=== PATIENT | female | born 1955 | race African-American/Black ===

== ENCOUNTER 2021-01-01 15:15 | Inpatient (IN) | payer MEDICAID, OTHER ==
[~2021-01-01] VITALS: Ht 160 cm; Wt 77.1 kg
[2021-01-01] MEDS ORDERED: ONDANSETRON HCL 4MG/2ML INJ IV STA (15:32)
[2021-01-01] MEDS ORDERED: LORAZEPAM 2MG/ML CPJ IV ONE (15:45)
[2021-01-01] MEDS ORDERED: HALOPERIDOL LACTATE 5MG/ML VIAL IM ONE (15:45)
[2021-01-01] MEDS ORDERED: LEVETIRACETAM 500MG PREMIX 100 ML IV ONE (15:45)
[2021-01-01] MEDS ORDERED: DIPHENHYDRAMINE 50MG/ML VIAL IM ONE (15:45)
[2021-01-01] MEDS ORDERED: SODIUM CHLORIDE 0.9% 1,000 ML IV ONE (15:45)
[2021-01-01 18:08] LABS: HEMATOCRIT. 39.6 % (36.0-48.0); HEMOGLOBIN. 13.2 g/dL (12.0-16.0); MEAN CORPUSCULAR VOLUME 95.9 fL (81.0-99.0); MEAN PLATELET VOLUME 8.4 fl (7.4-10.4); PLATELET 222 x1000/uL (130-400); RED BLOOD CELL COUNT 4.13 mill/uL (4.2-5.4); RED CELL DISTRIBUTION WIDTH 13.5 % (11.6-14.6)
[2021-01-01 18:12] LABS: CLARITY URINE CLEAR (CLEAR); COLOR URINE YELLOW (YELLOW); KETONES URINE 1+ (NEGATIVE); LEUKOCYTE ESTERASE URINE NEGATIVE (NEGATIVE); NITRITE URINE NEGATIVE (NEGATIVE); OCCULT BLOOD URINE TRACE (NEGATIVE); PROTEIN URINE 1+ (NEGATIVE); SPECIFIC GRAVITY URINE 1.016 (1.005-1.030); UROBILINOGEN URINE 0.2 E.U./dL (0.2-1.0)
[2021-01-01 18:15] LABS: CHLORIDE 112 mEq/L (98-107)
[2021-01-01 18:19] LABS: ETHANOL BLOOD < 10 mg/dL
[2021-01-01 18:21] LABS: *AMPHETAMINES SCREEN URINE NEGATIVE (NEGATIVE); *BARBITURATES SCREEN URINE NEGATIVE (NEGATIVE); *BENZODIAZEPINES SCREEN URINE NEGATIVE (NEGATIVE); *COCAINE SCREEN URINE NEGATIVE (NEGATIVE); CANNABINOID URINE SCREEN PRESUMTIVE POSITIVE (NEGATIVE); PHENCYCLIDINE URINE SCREEN NEGATIVE (NEGATIVE)
[2021-01-01 18:22] LABS: METHADONE URINE SCREEN NEGATIVE (NEGATIVE); OPIATES URINE SCREEN NEGATIVE (NEGATIVE)
[2021-01-01 18:34] LABS: PROTHROMBIN TIME 10.5 sec (9.6-11.0)
[2021-01-01 18:53] LABS: PLATELET ESTIMATE NORMAL
[2021-01-02] VITALS: BP 131/82
[2021-01-02] MEDS ORDERED: LORAZEPAM 2MG/ML CPJ IV PRN (01:00)
[2021-01-02 04:00] VITALS: BP 108/54
[2021-01-02 08:20] VITALS: BP 127/76
[2021-01-02] MEDS: LEVETIRACETAM 500MG TABLET PO SCH ×2 (09:26→20:30)
[2021-01-02] MEDS: AMLODIPINE 10MG TABLET PO SCH (09:27)
[2021-01-02 12:00] VITALS: BP 121/74
[2021-01-02] MEDS ORDERED: INFLUENZA VACCINE 05/PF 0.5 ML VIAL IM ONE (12:00)
[2021-01-02 16:00] VITALS: BP 103/51
[2021-01-02 20:00] VITALS: BP 112/69
[2021-01-03] VITALS: BP 118/68
[2021-01-03 04:00] VITALS: BP 105/60
[2021-01-03 08:20] VITALS: BP 123/71
[2021-01-03] MEDS: LEVETIRACETAM 500MG TABLET PO SCH (10:30)
[2021-01-03] MEDS: AMLODIPINE 10MG TABLET PO SCH (10:31)
[2021-01-03 12:00] VITALS: BP 119/81
[2021-01-03] MEDS ORDERED: KEPP500 PO (13:34)
[2021-01-03 16:00] VITALS: BP 125/80
[2021-01-03 18:33] VITALS: BP 125/80
== END 2021-01-03 19:15 | disposition home or self-care (01) | DRG 53 ==
LOC: EDSEX 15:15 → ER 15:15 → MICUSO 18:55 → 8WST 23:01
PROVIDERS: ADMIT Internal Medicine; ATTEND Internal Medicine
DX: G40.901 Epilepsy, unspecified, not intractable, with status epilepticus (principal); I10 Essential (primary) hypertension; M62.82 Rhabdomyolysis; F32.9 Major depressive disorder, single episode, unspecified; T42.6X6A Underdosing of other antiepileptic and sedative-hypnotic drugs, initial encounter; R79.89 Other specified abnormal findings of blood chemistry; Y92.89 Other specified places as the place of occurrence of the external cause; Z88.0 Allergy status to penicillin
CPT/HCPCS: 36415; 71045; 80053; 80305; 80320; 81003; 82542; 82550; 82553; 82962; 84484; 85025; 90686; 93005; 93306; 99285; J1200; J1630; J1953; J2060; J2405; J7030; G0480

== ENCOUNTER 2021-02-19 13:14 | Emergency (ER) | payer MEDICARE, MEDICAID ==
[~2021-02-19] VITALS: Ht 162.6 cm; Wt 77.0 kg
[~2021-02-19 13:14] MED LIST: KEPP500 PO
[2021-02-19 17:21] LABS: BASOPHILS % 0.9 % (0.0-2.0); EOSINOPHILS % 0.4 % (0.0-5.0); HEMATOCRIT. 37.7 % (36.0-48.0); HEMOGLOBIN. 12.6 g/dL (12.0-16.0); LYMPHOCYTES % 21.8 % (20.0-50.0); MEAN CORPUSCULAR VOLUME 95.8 fL (81.0-99.0); MONOCYTES % 6.5 % (2.0-8.0); NEUTROPHILS % 70.4 % (40.0-76.0); PLATELET 288 x1000/uL (130-400); RED BLOOD CELL COUNT 3.94 mill/uL (4.2-5.4); RED CELL DISTRIBUTION WIDTH 14.2 % (11.6-14.6)
[2021-02-19 17:26] LABS: CHLORIDE 112 mEq/L (98-107)
[2021-02-19] MEDS ORDERED: CEFTRIAXONE 1 G PREMIX 50 ML IV ONE (17:45)
[2021-02-19 18:00] LABS: CLARITY URINE CLEAR (CLEAR); COLOR URINE YELLOW (YELLOW); KETONES URINE NEGATIVE (NEGATIVE); LEUKOCYTE ESTERASE URINE NEGATIVE (NEGATIVE); NITRITE URINE NEGATIVE (NEGATIVE); OCCULT BLOOD URINE NEGATIVE (NEGATIVE); PH URINE >=9.0 (4.5-8.0); PROTEIN URINE NEGATIVE (NEGATIVE); SPECIFIC GRAVITY URINE 1.017 (1.005-1.030); UROBILINOGEN URINE 0.2 E.U./dL (0.2-1.0)
[2021-02-19] MEDS ORDERED: LIDOCAINE HCL/PF 1% 10 MG/ML 5ML VIAL IJ ONE (20:45)
[2021-02-19] MEDS ORDERED: DOXY100C2 MT (22:36)
[2021-02-19 23:47] VITALS: BP 120/65
== END 2021-02-19 23:51 | disposition home or self-care (01) ==
LOC: ER 13:14
DX: G89.18 Other acute postprocedural pain (principal); R10.2 Pelvic and perineal pain; I10 Essential (primary) hypertension; G40.909 Epilepsy, unspecified, not intractable, without status epilepticus; F41.9 Anxiety disorder, unspecified; Z88.0 Allergy status to penicillin
CPT/HCPCS: 36415; 76857; 80053; 81003; 83690; 85025; 96365; 99284; J0696; J3490

== ENCOUNTER 2021-08-02 15:37 | Emergency (ER) | payer MEDICARE, MEDICAID ==
[~2021-08-02 15:37] MED LIST changes: +DOXY100C5 MT
== END 2021-08-02 16:05 | disposition left against medical advice (07) ==
LOC: ER 15:37
DX: Z53.21 Procedure and treatment not carried out due to patient leaving prior to being seen by health care provider (principal)

== ENCOUNTER 2022-02-15 20:28 | Emergency (ER) | payer OTHER, MEDICARE, MEDICAID ==
[~2022-02-15] VITALS: Ht 167.6 cm; Wt 73.0 kg
[2022-02-15] MEDS ORDERED: DIPHENHYDRAMINE 50MG/ML VIAL IM STA (21:14)
[2022-02-15] MEDS ORDERED: LORAZEPAM 2MG/ML CPJ IM STA (21:14)
[2022-02-15] MEDS ORDERED: HALOPERIDOL LACTATE 5MG/ML VIAL IM STA (21:14)
[2022-02-15 22:52] LABS: BASOPHILS % 0.2 % (0.0-2.0); EOSINOPHILS % 0.1 % (0.0-5.0); HEMATOCRIT. 37.7 % (36.0-48.0); HEMOGLOBIN. 12.5 g/dL (12.0-16.0); LYMPHOCYTES % 15.3 % (20.0-50.0); MEAN CORPUSCULAR HEMOGLOBIN 30.4 pg (28.0-32.0); MEAN CORPUSCULAR VOLUME 91.2 fL (81.0-99.0); MEAN PLATELET VOLUME 7.8 fl (7.4-10.4); MONOCYTES % 4.7 % (2.0-8.0); NEUTROPHILS % 79.7 % (40.0-76.0); PLATELET 194 x1000/uL (130-400); RED BLOOD CELL COUNT 4.13 mill/uL (4.2-5.4); RED CELL DISTRIBUTION WIDTH 13.4 % (11.6-14.6)
[2022-02-15 23:00] LABS: CHLORIDE 116 mEq/L (98-107)
[2022-02-15 23:03] LABS: ETHANOL BLOOD 88 mg/dL
[2022-02-16 04:23] LABS: CLARITY URINE CLEAR (CLEAR); COLOR URINE YELLOW (YELLOW); KETONES URINE NEGATIVE (NEGATIVE); LEUKOCYTE ESTERASE URINE NEGATIVE (NEGATIVE); NITRITE URINE POSITIVE (NEGATIVE); OCCULT BLOOD URINE 1+ (NEGATIVE); PH URINE 5.5 (4.5-8.0); PROTEIN URINE NEGATIVE (NEGATIVE); SPECIFIC GRAVITY URINE 1.015 (1.005-1.030); UROBILINOGEN URINE 0.2 E.U./dL (0.2-1.0)
[2022-02-16 04:33] LABS: *AMPHETAMINES SCREEN URINE NEGATIVE (NEGATIVE); *BARBITURATES SCREEN URINE NEGATIVE (NEGATIVE); *BENZODIAZEPINES SCREEN URINE NEGATIVE (NEGATIVE); *COCAINE SCREEN URINE NEGATIVE (NEGATIVE); CANNABINOID URINE SCREEN PRESUMTIVE POSITIVE (NEGATIVE); METHADONE URINE SCREEN NEGATIVE (NEGATIVE); OPIATES URINE SCREEN NEGATIVE (NEGATIVE); PHENCYCLIDINE URINE SCREEN NEGATIVE (NEGATIVE)
[2022-02-16] MEDS ORDERED: QUETIAPINE FUMARATE 50MG TABLET PO STA (20:38)
[2022-02-17] MEDS ORDERED: LEVETIRACETAM 500MG/5ML CUP PO ONE (10:00)
[2022-02-17] MEDS ORDERED: CITALOPRAM HYDROBROMIDE 10MG TABLET PO ONE (10:00)
[2022-02-17] MEDS ORDERED: BUSPIRONE HCL 10MG TABLET PO ONE (10:00)
[2022-02-17 13:08] VITALS: BP 141/70
[2022-02-17] MEDS ORDERED: OLANZAPINE 2.5MG TABLET PO SCH (17:00)
[2022-02-17] MEDS ORDERED: ATORVASTATIN CALCIUM 10MG TABLET PO SCH (21:00)
== END 2022-02-17 13:32 ==
LOC: ER 20:28
DX: R45.850 Homicidal ideations (principal); F33.3 Major depressive disorder, recurrent, severe with psychotic symptoms; R45.851 Suicidal ideations; R45.1 Restlessness and agitation; Z63.79 Other stressful life events affecting family and household; I10 Essential (primary) hypertension; Z20.822 Contact with and (suspected) exposure to COVID-19; G40.909 Epilepsy, unspecified, not intractable, without status epilepticus; Z75.1 Person awaiting admission to adequate facility elsewhere
CPT/HCPCS: 36415; 80053; 80305; 80307; 80320; 80329; 81003; 85025; 96372; 99285; C9803; J1200; J1630; J2060; U0003; U0005; G0480

== ENCOUNTER 2023-03-11 14:10 | Emergency (ER) | payer MEDICARE, MEDICAID ==
[~2023-03-11] VITALS: Ht 165.1 cm; Wt 100.0 kg
[2023-03-11] MEDS ORDERED: ACETAMINOPHEN 325MG TABLET PO ONE (18:15)
[2023-03-11] MEDS ORDERED: BENZ200C52 MT (19:33)
[2023-03-11 19:38] VITALS: BP 116/69
== END 2023-03-11 19:40 | disposition home or self-care (01) ==
LOC: ER 16:07
DX: B34.9 Viral infection, unspecified (principal); R05.1 Acute cough; F32.A Depression, unspecified; F41.9 Anxiety disorder, unspecified; I10 Essential (primary) hypertension; Z88.0 Allergy status to penicillin
CPT/HCPCS: 71045; 87070; 87430; 99284